=== PATIENT | female | born 1955 | race Caucasian/White ===

== ENCOUNTER 2021-11-08 02:17 | Emergency (ER) | payer MEDICARE, OTHER ==
[~2021-11-08] VITALS: Ht 160 cm; Wt 86.2 kg
[2021-11-08] MEDS ORDERED: METPRE4DP PO (05:46)
== END 2021-11-08 06:09 | disposition home or self-care (01) ==
LOC: ER 02:17
DX: L50.9 Urticaria, unspecified (principal); L29.9 Pruritus, unspecified
CPT/HCPCS: J7512